=== PATIENT | male | born 1965 | race Caucasian/White ===

== ENCOUNTER 2018-12-07 08:23 | Emergency (ER) | payer MEDICAID, SELFPAY ==
[2018-12-07 08:24] VITALS: BP 117/88; PULSE 86; RESP 18; TEMP 36.7; O2SAT 96; BMI 32.8
--- NOTE | 2018-12-07 09:17 | RAD_ITS ---
STUDY: X-RAY - RIGHT FOOT CLINICAL: Male, 53 years old. History of osteomyelitis. TECHNIQUE: 3 view(s) of the foot. COMPARISON: None. FINDINGS: There is an enthesophyte involving the posterior superior calcaneus at the site of insertion of the Achilles tendon. Normal visualized subtalar, talonavicular, calcaneocuboid, tarsal and tarsometatarsal articulations. Normal metatarsi. Normal metatarsophalangeal joint of the great toe. Normal tibial and fibular sesamoid bones. Normal interphalangeal joint of the great toe. Normal phalanges of the great toe. Normal second through fifth metatarsophalangeal joints. Normal interphalangeal joints and phalanges of the lesser toes. 2 tiny linear metallic densities are seen in the soft tissues overlying the fibular aspect of the proximal phalanx of the great toe. This may represent foreign bodies. RAD/Foot min 3 Views IMPRESSION: Findings suggestive of 2 tiny linear metallic density suggestive of foreign bodies in the soft tissues along the fibular aspect of the proximal phalanx of the great toe. Electronically Signed: Jeanmarie De La Garza, at 9:56 EDT , Service support ,
[2018-12-07] MEDS: 0.9% Normal Saline 1,000 ML 1000 ML IV (09:22)
[2018-12-07 09:29] LABS: Absolute Lymphocyte Count 1.38 X10^3/uL (0.83-4.51); Absolute Neutrophil Count 8.5 X10^3/uL (2.0-7.7); Basophil# 0.03 X10^3/uL; Basophil% 0.3 % (0-1); Eosinophil# 0.18 X10^3/uL; Eosinophils% 1.7 % (0-5); Hematocrit 41.5 % (40-54); Hemoglobin 14.7 g/dL (13.0-16.5); Lymphocyte # 1.38 X10^3/ul (4.0); Lymphocyte % 12.8 % (19-41); Mean Corp Hgb Conc 35.4 g/dL (32-36); Mean Corpuscular Hgb 30.2 pg (27.0-32.0); Mean Corpuscular Volume 85.2 fL (80-94); Monocyte# 0.59 X10^3/uL; Monocyte% 5.5 % (0-10); NRBC Flagged by Analyzer 0 % (0-5); Neutrophil # 8.53 X10^3/uL (2.7-7.7); Platelet Count 336 K/mm3 (150-450); RBC Distribution Width CV 12.8 % (11.6-14.6); RBC Distribution Width SD 39.4 fl (35.1-43.9); Red Blood Count 4.87 M/mm3 (4.6-6.2); White Blood Count 10.8 K/mm3 (4.4-11.0)
[2018-12-07 09:44] LABS: ALB/GLOB Ratio 0.7 RATIO (0.9-2.4); AST(SGOT) 22 U/L (15-37); Alanine Aminotransfer ALT/SGPT 43 U/L (16-61); Alkaline Phosphatase 83 U/L (45-117); Anion Gap 8 (5-15); BUN 22 mg/dL (7-18); BUN/Creat Ratio 23.4 RATIO (10-20); Chloride 101 mmol/L (98-107); Creatinine, Serum 0.94 mg/dL (0.70-1.30); EST Glomerular Filtration Rate 89 mL/min (>60); Est Glom Filt Rate - Afr Amer 107 mL/min (>60); Estimated Creatinine Clearance 95.68 ml/min; Globulin 4.5 g/dL (2.2-4.2); Glucose 213 mg/dL (74-106); International Normalized Ratio 1.2; Potassium 3.7 mmol/L (3.5-5.1); Protein, Total 7.5 g/dL (6.4-8.2); Prothrombin Time (Protime)PT. 14.7 SECONDS (11.7-14.9); Sodium Level 134 mmol/L (136-145)
[2018-12-07 09:45] LABS: Partial Thromboplast Time 38.4 Seconds (24.1-36.2)
[2018-12-07 09:58] LABS: Color, Urine Yellow (Yellow); Glucose, Dipstick Normal (Normal); Ketone-Dipstick 5 mg/dl (Negative); Leukocyte Esterase-Dipstick 25 /ul (Negative); Nitrite-Dipstick Negative (Negative); Occult Blood-Urine 50 /ul (Negative); Protein-Dipstick 30 mg/dl (Negative); Urine Bilirubin Dipstick Negative (Negative); Urine Clarity Clear (Clear); Urine Urobilinogen Normal (Normal)
[2018-12-07 10:07] LABS: Bacteria RARE /hpf (None Seen); Red Blood Cells-Urine 5-10 SEEN /hpf (0-5); Squamous Epithelial Cells - UA 0-5 SEEN /hpf (0-5); White Blood Cells 0-5 SEEN /hpf (0-5)
[2018-12-07 10:08] LABS: Mucous, Urine 1+ /hpf (<or=2+)
[2018-12-07 10:43] VITALS: BP 159/89; PULSE 82; RESP 14; O2SAT 97
--- NOTE | 2018-12-07 11:14 | ED.VISSUMM ---
- ER Visit Summary Date of Service: 12/07/18 Chief Complaint: Rash History of Present Illness: The patient is a 53 M who goes to the [facility] and also sees Dr. Espinoza. He reports that he had redness between his right first and second toes that began 1 week ago[address] He saw Dr. summers in the office and was placed on Keflex. He is also been doing soaks and grafts 4 times a day. Reports he developed a blister to that foot 5 days ago. He denies any fever, chills, nausea, or vomiting. Patient reports that he has a rash that began on his legs bilaterally around his knees 2 days ago. States that they have now spread to his lower abdomen. He has pain only with touching these. He reports that he has hand swelling that began yesterday. He denies any sores in his mouth or around his anus. Patient denies any change in soap, shampoo, laundry detergent, or fabric softener. No new clothing, bedding, carpeting, or pets. No new other than Keflex in the past month. Physical Examination: Vitals: Stable. Afebrile. General: Well-nourished and well-developed. Head: Normocephalic atraumatic. Neck: Supple, no lymphadenopathy. No JVD. Nontender. Cardiovascular: Regular rate and rhythm. No murmurs. Respiratory: No respiratory distress. Clear to auscultation bilaterally. Abdominal: Soft, nontender, nondistended, normal bowel sounds. No guarding, rebound, or peritoneal signs. Back: Nontender. Extremities: He does have an approximately 6 x 8 cm hemorrhagic blister to the plantar surface of his right foot. This begins at the intersection of his first and second toes. At the end widens and spreads over to his arch. This is thin-walled. The fluid inside does appear slightly cloudy. There is no surrounding erythema or induration. He has a 2+ dorsalis pedis pulse. No edema. Skin: Purpuric 5 mm to 1 cm lesions scattered over his lower extremities and lower abdomen bilaterally. There is no confluence. They are mildly tender to palpation. There are no vesicular lesions. Neurologic: Alert and oriented ?3. Cranial nerves II through XII are intact. Normal strength and sensation. Psych: Normal affect. Test Results: CBC shows segmented neutrophils 79 lymphocytes 13. Chem-7 shows a sodium 134, glucose 213, BUN of 22. LFTs show an albumin 3.0 globulin 4.5. INR is 1.2. PTT is 38.4. UA shows blood, ketones, 5-10 red blood cells. Lactic acid is 2.0. Clinical Impression(s) from Imaging Studies Foot X-Ray 12/07/18 09:17 IMPRESSION: Findings suggestive of 2 tiny linear metallic density suggestive of foreign bodies in the soft tissues along the fibular aspect of the proximal phalanx of the great toe. Electronically Signed: Jeanmarie De La Garza, at 9:56 EDT , Service support , Emergency Department Course and Treatment: Patient had an IV placed. He was given a dose of vancomycin IV. He is resting comfortably. On repeat exam I am unable to palpate a foreign body. He has no areas of pain that would be suggestive of a sharp foreign body. I do not think that exploring this in the emergency department is in his best interest. I suspect that the large hemorrhagic blister with unroofed. Treatment Plan: The patient was discussed with Dr. Lyn who states that he has a very full schedule and is unsure when he would be able to see the patient. He was then discussed with Dr. Espinoza, his intake clinician, who asked that he be transferred to [facility]. He was discussed with Dr. Villa there. He has accepted him in transfer. Disposition: Transferred in improved condition. Impression: 1. Foreign body right great toe. 2. Hemorrhagic blister right foot. 3. Purpura. This note was generated with cacaoTVation software. It may contain incorrect words, spelling, and punctuation that were not noted in review of the chart prior to signing ED Disposition - Plan for ED Patient: Referrals: Etelvina Rain NP-C [Primary Care Provider] -
--- NOTE | 2018-12-07 11:57 | CASEMGMT ---
Case Managment Progress Note: According to patient insurance [employer], [facility]: [facility], [facility] , [facility], [facility], [facility], [facility], [facility]. Reyes Brooks RNCM
[2018-12-07 13:21] LABS: Reflex Lactate? Y
== END 2018-12-07 12:08 | disposition home or self-care (01) ==
LOC: ED 09:30
PROVIDERS: Emergency Provider Emergency Medicine; Family Provider Nurse Practitioner Family; PCP Nurse Practitioner Family
DX: S90.821A Blister (nonthermal), right foot, initial encounter (principal); M79.5 Residual foreign body in soft tissue; D69.2 Other nonthrombocytopenic purpura; M79.89 Other specified soft tissue disorders; X58.XXXA Exposure to other specified factors, initial encounter; Y93.9 Activity, unspecified; Y92.9 Unspecified place or not applicable; Y99.9 Unspecified external cause status; E11.9 Type 2 diabetes mellitus without complications; I10 Essential (primary) hypertension; Z79.82 Long term (current) use of aspirin; Z79.4 Long term (current) use of insulin; Z79.899 Other long term (current) drug therapy
CPT/HCPCS: 36415; 73630; 80053; 81001; 83605; 85025; 85610; 85730; 87040; 96361; 96365; 96366; 99285; J7030; J7040; A4216

== ENCOUNTER 2019-01-19 08:46 | Outpatient (RCR) | payer MEDICAID, SELFPAY ==
[2019-01-19 08:58] VITALS: BP 147/95; PULSE 72; RESP 18; TEMP 36.2; BMI 73.1
--- NOTE | 2019-01-19 11:17 | PCM.WC.HP ---
(1) Puncture wound of right foot Status: Acute Current Visit: Yes Code(s): S91.331A - Puncture wound without foreign body, right foot, initial encounter (2) Diabetes mellitus Status: Chronic Current Visit: No Qualifiers: Diabetes mellitus type: type 2 Diabetes mellitus intermediate accountant insulin use: with intermediate accountant use Diabetes mellitus complication status: with circulatory complication Code(s): E11.9 - Type 2 diabetes mellitus without complications (3) Obsessive compulsive disorder Status: Chronic Current Visit: No Code(s): F42.9 - Obsessive-compulsive disorder, unspecified (4) Superficial abrasion Status: Acute Current Visit: Yes Code(s): T14.8XXA - Other injury of unspecified body region, initial encounter History of Present Illness Date of Service: 01/19/19 Chief Complaint: Follow-up right plantar foot and left second toe plantar side History of Wound: 53-year-old white male diabetic that has been dealing with the blister on the left second toe for over a year it is now scabbed over and appears to be healed. The right ball of the foot has a scabbed hole that will be reopened and checked. Apparently he stepped on a nail or a pin and did not know it was and him had infection was treated in the end of November 1 part of December. He was then referred to the wound center. He does take insulin and orals and is well controlled at 7.1 on hemoglobin A1c Past Medical History Past Medical History: Chronic Problems Obsessive compulsive disorder (Chronic) Diabetes mellitus (Chronic) Hyperlipidemia (Chronic) Benign hypertension (Chronic) Past Medical History: Open wound right plantar foot, from stepping on a needle or nail or what ever. Has been seen by the other doctor get the needle out infection was there started on antibiotics over a month ago finish those and now is having a hard time closing it. Left second toe has been a blister that has closed and is now scabbed and when the scab is removed there is nothing there. Healed Allergies/Adverse Reactions: Allergies No Known Allergies Allergy (Verified 01/19/19 09:26) Home Medications: Ambulatory Orders Medication Instructions Recorded Aspirin [Aspirin, Baby] 81 mg PO DAILY@0800 01/02/13 Ezetimibe [Zetia] 10 mg PO DAILY 01/02/13 Fluoxetine [Prozac] 40 mg PO DAILY 01/02/13 Glimepiride [Amaryl] 4 mg PO DAILY 01/02/13 Verapamil HCl [Verelan] 180 mg PO DAILY 01/02/13 metFORMIN HCl [Glucophage] 500 mg PO BIDCM 01/02/13 Cholecalciferol (Vitamin D3) 1 tab PO DAILY 12/07/18 [Vitamin D3] Gemfibrozil 1 tab PO BID 12/07/18 Insulin Glargine,Hum.rec.anlog 20 unit SQ QHS 12/07/18 [Basaglar Kwikpen U-100] Liraglutide [Victoza 3-Jose] 1.8 mg SQ DAILY 12/07/18 Metoprolol Tartrate [Lopressor 100 mg PO BID 12/07/18 (Beta Augustine)] Pravastatin Sodium 80 mg PO DAILY 12/07/18 Smoking Status: Never smoker Review of Systems Constitutional: Denies: Chills, Fever Eyes: Denies: Blurred vision, Drainage, Pain HEENT: Denies: Difficulty Hearing, Difficulty Swallowing, Sore Throat, Visual Changes Cardiovascular: Denies: Chest Pain, Palpitations, Syncope Respiratory: Denies: Cough, Shortness of Breath Gastrointestinal: Denies: Abdominal Pain, Nausea, Vomiting Genitourinary: Denies: Dysuria, Frequency Musculoskeletal: Denies: Joint Pain, Muscle pain Skin: Denies: Jaundice, Rash Neurological: Denies: Balance problems, Change in Speech, Difficulty swallowing, Focal weakness Psychiatric: Denies: Anxiety, Depression Endocrine: Denies: Change in Body Habitus Hematologic/ Lymphatic: Denies: Adenopathy - Physical Exam Vital Signs Temp Pulse Resp BP 97.1 F L 72 18 147/95 H 01/19/19 08:58 01/19/19 08:58 01/19/19 08:58 01/19/19 08:58 General: Oriented x3, Cooperative, Well developed HEENT: Atraumatic, PERRLA Oral: Moist Mucosa Neck: Supple, No JVD Lungs: Clear to auscultation, Normal air movement Cardiovascular: Regular rate, Regular Rhythm Abdomen: Bowel Sounds Present, Soft, Non Tender, No Hepato-splenomegaly Extremities: No clubbing, No edema Skin: Ulcer/ Wound - Right plantar foot left second toe plantar side Wound Measurements and Assessment WC - Nurse 1 - General Ulcer Measurement Start: 01/19/19 08:58 Freq: Status: Active Protocol: Activity Type Activity Date Activity User E-Sign Co-Sign Detail Recorded Client Recorded Date Recorded By Document 01/19/19 08:58 DL [id number] 01/19/19 09:19 DL 01/19/19 08:58 Wound Center Nurse 1 [Ulcer Assessment] #4 L 2nd Toe Plantar -Current Size (cm) - Length 0.2 -Current Size (cm) - Width 0.2 -Current Size (cm) - Depth 0.1 -Total Square Cm 0.04 -Photo Taken Yes -Exudate Amt None Present -Wound Margin Thickened -Granulation Amt None Present (0 %) -Necrosis Amt Small (1-33%) -Necrotic Tissue Type Adherent Slough -Structure Exposed N/A -Texture (Umu-wound Skin Appearance) Callus -Moisture (Umu-wound Skin Appearance No Abnormality ) -Color (Umu-wound Skin Appearance) No Abnormality -Temperature (Umu-wound Skin No Abnormality Appearance) (Pt Warm) -Tenderness on Palpation (Umu-wound Yes Skin Appearance) -Ulcer Cleansing Wound Cleanser -Foul Odor after Cleansing No -Anesthetic Used 4% Lidocaine Solution #3 R Plantar -Current Size (cm) - Length 0.5 -Current Size (cm) - Width 0.3 -Current Size (cm) - Depth 0.1 -Total Square Cm 0.15 -Photo Taken Yes -Classification - Thickness Unclassifiable (Eschar Covered ) -Exudate Amt None Present -Wound Margin Thickened -Granulation Amt None Present (0 %) -Necrosis Amt Small (1-33%) -Necrotic Tissue Type Eschar -Structure Exposed N/A -Texture (Umu-wound Skin Appearance) Callus -Moisture (Umu-wound Skin Appearance No Abnormality ) -Color (Umu-wound Skin Appearance) No Abnormality -Temperature (Umu-wound Skin No Abnormality Appearance) (Pt Warm) -Tenderness on Palpation (Umu-wound Yes Skin Appearance) -Ulcer Cleansing Wound Cleanser -Foul Odor after Cleansing No -Anesthetic Used 4% Lidocaine Solution WC - Nurse 2 - General Ulcer CM Notes Start: 01/19/19 08:58 Freq: Status: Active Protocol: Activity Type Activity Date Activity User E-Sign Co-Sign Detail Recorded Client Recorded Date Recorded By Document 01/19/19 09:51 MW [id number] 01/19/19 10:02 MW 01/19/19 09:51 Wound Center Nurse 2 [Procedure/Treatment] #4 L 2nd Toe Plantar -Time 09:53 -Correct Patient Yes -Correct Side, Site, Position Yes -Correct Procedure Yes -Post Debridement Size (cm) - Length 0 -Post Debridement Size (cm) - Width 0 -Post Debridement Size (cm) - Depth 0 -Total Square Cm 0 -Wound/Ulcer Outcome Healed- Epithelialized -Ulcer Cleansing Not Cleansed -Treatment Response Procedure Tolerated Well #3 R Plantar -Time 09:53 -Correct Patient Yes -Correct Side, Site, Position Yes -Correct Procedure Yes -Procedure Performed Yes -Type of Procedure Debridement -Clinical Debridement Subcutaneous -Post Debridement Size (cm) - Length 0.4 -Post Debridement Size (cm) - Width 0.4 -Post Debridement Size (cm) - Depth 0.3 -Total Square Cm 0.16 -Wound/Ulcer Outcome Not Healed -Ulcer Cleansing Rinsed/ Irrigated with Saline -Foul Odor after Cleansing No -Bioengineered Tissue No -Bleeding Controlled with NA -Offloading No -Treatment Response Procedure Tolerated Well [See Physician Procedure note for Specifics] Pain Scale: 0-10 Numeric [Pain] -Is Patient Pain Free? Yes Musculoskeletal: No Tenderness to Palpation of Joints or Extremities Lymphatic: No Cervical, Supraclavicular, or Inguinal Adenopathy Neurological: Cranial nerves II-XII grossly intact, Neuro grossly intact Psych/Mental Status: Normal Affect, Appropriate Debridement Note Post-Debridement Measurements/Treatment WC - Nurse 2 - General Ulcer CM Notes Start: 01/19/19 08:58 Freq: Status: Active Protocol: Activity Type Activity Date Activity User E-Sign Co-Sign Detail Recorded Client Recorded Date Recorded By Document 01/19/19 09:51 MW [id number] 01/19/19 10:02 MW 01/19/19 09:51 Wound Center Nurse 2 #4 L 2nd Toe Plantar -Time 09:53 -Correct Patient Yes -Correct Side, Site, Position Yes -Correct Procedure Yes -Post Debridement Size (cm) - Length 0 -Post Debridement Size (cm) - Width 0 -Post Debridement Size (cm) - Depth 0 -Total Square Cm 0 -Wound/Ulcer Outcome Healed- Epithelialized -Ulcer Cleansing Not Cleansed -Treatment Response Procedure Tolerated Well #3 R Plantar -Time 09:53 -Correct Patient Yes -Correct Side, Site, Position Yes -Correct Procedure Yes -Procedure Performed Yes -Type of Procedure Debridement -Clinical Debridement Subcutaneous -Post Debridement Size (cm) - Length 0.4 -Post Debridement Size (cm) - Width 0.4 -Post Debridement Size (cm) - Depth 0.3 -Total Square Cm 0.16 -Wound/Ulcer Outcome Not Healed -Ulcer Cleansing Rinsed/ Irrigated with Saline -Foul Odor after Cleansing No -Bioengineered Tissue No -Bleeding Controlled with NA -Offloading No -Treatment Response Procedure Tolerated Well Pain Scale: 0-10 Numeric Is Patient Pain Free? Yes Wound debrided: Right foot plantar side Type of Debridement: Excisional debridement Anesthesia Used: 5% Lidocaine Gel Depth: Down to and including healthy tissue, in the subcutaneous layer Percentage of wound debrided: 100 Instrument Used: 7mm curette Tissue Removed: Devitalized tissue and fibrin Severity: Limited To Skin Breakdown Amount of bleeding with debridement: Mild Bleeding Controlled with: Pressure Patient tolerated procedure well - Additional Wound Wound debrided: Left second toe plantar side Type of Debridement: Excisional debridement Anesthesia Used: 5% Lidocaine Gel Depth: Down to and including healthy tissue Percentage of wound debrided: 100 Instrument Used: 7mm curette Tissue Removed: Callus scab Severity: Limited To Skin Breakdown Amount of bleeding with debridement: None Patient tolerated procedure: Patient tolerated procedure well Assessment/Plan Anaerobic and aerobic cultures obtained Active Problems Puncture wound of right foot (Acute) Superficial abrasion (Acute) Assessment: Right foot puncture wound to right plantar foot. Healed right second toe abrasion. Diabetes type 1.5 Plan: Wash foot with Hibiclens or antibacterial soap. Pack puncture with Promogran cover with Adaptic gauze and tape. Follow-up in 2 weeks. Call with culture results
== END 2019-02-01 23:59 ==
LOC: WC 08:46
PROVIDERS: Family Provider Nurse Practitioner Family; PCP Nurse Practitioner Family; Referring Provider Nurse Practitioner; Visit Provider Nurse Practitioner
DX: S91.331A Puncture wound without foreign body, right foot, initial encounter (principal); S90.425A Blister (nonthermal), left lesser toe(s), initial encounter; F42.9 Obsessive-compulsive disorder, unspecified; W22.8XXA Striking against or struck by other objects, initial encounter; Z79.4 Long term (current) use of insulin; E78.5 Hyperlipidemia, unspecified; I10 Essential (primary) hypertension; Z79.899 Other long term (current) drug therapy; Z79.82 Long term (current) use of aspirin; E13.9 Other specified diabetes mellitus without complications
CPT/HCPCS: 11042; 87070; 87075; 87205; 99213; G0463

== ENCOUNTER 2019-02-02 08:12 | Outpatient (RCR) | payer MEDICAID, SELFPAY ==
[2019-02-02 01:31] VITALS: BP 147/95; PULSE 72; RESP 18; TEMP 36.2
[2019-02-02 08:09] VITALS: BP 144/94; PULSE 69; RESP 19; TEMP 35.9; BMI 73.1
--- NOTE | 2019-02-02 10:44 | PCM.WC.PN ---
(1) Puncture wound of right foot Status: Acute Current Visit: Yes Qualifiers: Encounter type: subsequent encounter Qualified Code(s): S91.331D - Puncture wound without foreign body, right foot, subsequent encounter Code(s): S91.331A - Puncture wound without foreign body, right foot, initial encounter (2) Superficial abrasion Status: Acute Current Visit: Yes Code(s): T14.8XXA - Other injury of unspecified body region, initial encounter (3) Benign hypertension Status: Chronic Current Visit: Yes Code(s): I10 - Essential (primary) hypertension (4) Diabetes mellitus Status: Chronic Current Visit: Yes Code(s): E11.9 - Type 2 diabetes mellitus without complications (5) Obsessive compulsive disorder Status: Chronic Current Visit: No Code(s): F42.9 - Obsessive-compulsive disorder, unspecified Type of Wound Date of Service: 02/02/19 Chief Complaint: Follow-up right plantar foot and left second toe plantar side History of Wound: 53-year-old white male diabetic that has been dealing with the blister on the left second toe for over a year it is now scabbed over and appears to be healed. The right ball of the foot has a scabbed hole that will be reopened and checked. Apparently he stepped on a nail or a pin and did not know it was and him had infection was treated in the end of November 1 part of December. He was then referred to the wound center. He does take insulin and orals and is well controlled at 7.1 on hemoglobin A1c Progress of Wound: Today the wound is healed patient will be discharged from the wound center - Physical Exam Vital Signs Temp Pulse Resp BP 96.6 F L 69 19 H 144/94 H 02/02/19 08:09 02/02/19 08:09 02/02/19 08:09 02/02/19 08:09 General: Oriented x3, Cooperative, Well developed HEENT: Atraumatic, PERRLA Oral: Moist Mucosa Neck: Supple, No JVD Lungs: Clear to auscultation, Normal air movement Cardiovascular: Regular rate, Regular Rhythm Abdomen: Bowel Sounds Present, Soft, Non Tender, No Hepato-splenomegaly Extremities: No clubbing, No edema Wound Measurements and Assessment WC - Nurse 1 - General Ulcer Measurement Start: 02/02/19 08:09 Freq: Status: Active Protocol: Activity Type Activity Date Activity User E-Sign Co-Sign Detail Recorded Client Recorded Date Recorded By Document 02/02/19 08:09 DL [id number] 02/02/19 08:16 DL 02/02/19 08:09 Wound Center Nurse 1 [Ulcer Assessment] #3 R Plantar -Current Size (cm) - Length 0.2 -Current Size (cm) - Width 0.2 -Current Size (cm) - Depth 0.1 -Total Square Cm 0.04 -Photo Taken No -Exudate Amt None Present -Wound Margin Thickened -Granulation Amt None Present (0 %) -Necrosis Amt Small (1-33%) -Necrotic Tissue Type Eschar -Structure Exposed N/A -Texture (Umu-wound Skin Appearance) Callus -Moisture (Umu-wound Skin Appearance No Abnormality ) -Color (Umu-wound Skin Appearance) No Abnormality -Temperature (Umu-wound Skin No Abnormality Appearance) (Pt Warm) -Tenderness on Palpation (Umu-wound No Skin Appearance) -Ulcer Cleansing Wound Cleanser -Foul Odor after Cleansing No -Anesthetic Used 5% Lidocaine Gel WC - Nurse 2 - General Ulcer CM Notes Start: 02/02/19 08:09 Freq: Status: Active Protocol: Activity Type Activity Date Activity User E-Sign Co-Sign Detail Recorded Client Recorded Date Recorded By Document 02/02/19 08:29 MW [id number] 02/02/19 08:30 MW 02/02/19 08:29 Wound Center Nurse 2 [Procedure/Treatment] -Time 08:29 -Correct Patient Yes -Correct Side, Site, Position Yes -Correct Procedure Yes -Procedure Performed No -Post Debridement Size (cm) - Length 0 -Post Debridement Size (cm) - Width 0 -Post Debridement Size (cm) - Depth 0 -Total Square Cm 0 -Wound/Ulcer Outcome Healed- Epithelialized [See Physician Procedure note for Specifics] Pain Scale: 0-10 Numeric [Pain] -Is Patient Pain Free? Yes Musculoskeletal: No Tenderness to Palpation of Joints or Extremities Lymphatic: No Cervical, Supraclavicular, or Inguinal Adenopathy Neurological: Cranial nerves II-XII grossly intact, Neuro grossly intact Psych/Mental Status: Normal Affect, Appropriate Debridement Note Post-Debridement Measurements/Treatment WC - Nurse 2 - General Ulcer CM Notes Start: 02/02/19 08:09 Freq: Status: Active Protocol: Activity Type Activity Date Activity User E-Sign Co-Sign Detail Recorded Client Recorded Date Recorded By Document 02/02/19 08:29 MW [id number] 02/02/19 08:30 MW 02/02/19 08:29 Wound Center Nurse 2 #3 R Plantar -Time 08:29 -Correct Patient Yes -Correct Side, Site, Position Yes -Correct Procedure Yes -Procedure Performed No -Post Debridement Size (cm) - Length 0 -Post Debridement Size (cm) - Width 0 -Post Debridement Size (cm) - Depth 0 -Total Square Cm 0 -Wound/Ulcer Outcome Healed- Epithelialized Pain Scale: 0-10 Numeric Is Patient Pain Free? Yes No debridement was completed today Assessment/Plan Active Problems Puncture wound of right foot (Acute) Superficial abrasion (Acute) Diabetes mellitus (Chronic) Benign hypertension (Chronic) Assessment: Discharge from the wound center follow-up as needed Plan: Wash foot with Hibiclens or antibacterial soap. Pack puncture with Promogran cover with Adaptic gauze and tape. Follow-up in 2 weeks. Call with culture results
== END 2019-03-03 23:59 ==
LOC: WC 08:12
PROVIDERS: Family Provider Nurse Practitioner Family; PCP Nurse Practitioner Family; Referring Provider Nurse Practitioner; Visit Provider Nurse Practitioner
DX: Z09 Encounter for follow-up examination after completed treatment for conditions other than malignant neoplasm (principal); I10 Essential (primary) hypertension; E11.9 Type 2 diabetes mellitus without complications; F42.9 Obsessive-compulsive disorder, unspecified
CPT/HCPCS: 99212; G0463

== ENCOUNTER → 2019-12-11 08:15 | Outpatient (CLI) | payer MEDICAID, SELFPAY ==
[2019-12-11 08:38] LABS: Absolute Lymphocyte Count 1.34 X10^3/uL (0.83-4.51); Absolute Neutrophil Count 5.2 X10^3/uL (2.0-7.7); Basophil# 0.05 X10^3/uL; Basophil% 0.7 % (0-1); Hematocrit 40.9 % (40-54); Hemoglobin 14.1 g/dL (13.0-16.5); Lymphocyte # 1.34 X10^3/ul (4.0); Mean Corp Hgb Conc 34.5 g/dL (32-36); Mean Corpuscular Hgb 30.2 pg (27.0-32.0); Mean Corpuscular Volume 87.6 fL (80-94); Mean Platelet Vol. 11.2 fl (6.2-12.0); Monocyte# 0.58 X10^3/uL; Monocyte% 7.8 % (0-10); NRBC Flagged by Analyzer 0 % (0-5); Neutrophil # 5.16 X10^3/uL (2.7-7.7); Neutrophil % 69.1 % (47-70); Platelet Count 209 K/mm3 (150-450); RBC Distribution Width CV 13.4 % (11.6-14.6); RBC Distribution Width SD 42.6 fl (35.1-43.9); Red Blood Count 4.67 M/mm3 (4.6-6.2); White Blood Count 7.5 K/mm3 (4.4-11.0)
[2019-12-11 09:14] LABS: AST(SGOT) 15 U/L (15-37); Alanine Aminotransfer ALT/SGPT 22 U/L (16-61); Alkaline Phosphatase 92 U/L (45-117); Anion Gap 5 (5-15); BUN 16 mg/dL (7-18); BUN/Creat Ratio 16.3 RATIO (10-20); Calcium,Total 9.3 mg/dL (8.5-10.1); Chloride 104 mmol/L (98-107); Cholesterol 118 mg/dL (200); Creatinine, Serum 0.98 mg/dL (0.70-1.30); EST Glomerular Filtration Rate 84 mL/min (>60); Est Glom Filt Rate - Afr Amer 102 mL/min (>60); Globulin 3.9 g/dL (2.2-4.2); Glucose 255 mg/dL (74-106); High Density Lipoprotein 28 mg/dL; Potassium 4.2 mmol/L (3.5-5.1); Protein, Total 7.9 g/dL (6.4-8.2); Sodium Level 138 mmol/L (136-145); Triglycerides 275 mg/dL; Very Low Density Lipoprotein 55 mg/dL (5-40)
[2019-12-11 09:15] LABS: Hemoglobin A1c 7.6 % (3.8-5.6)
[2019-12-11 09:51] LABS: Vitamin D,25 Hydroxy 50.6 ng/mL
== END ==
PROVIDERS: Nurse Practitioner Family
DX: E11.65 Type 2 diabetes mellitus with hyperglycemia (principal); I10 Essential (primary) hypertension; E55.9 Vitamin D deficiency, unspecified; E78.2 Mixed hyperlipidemia
CPT/HCPCS: 36415; 80053; 80061; 82306; 83036; 85025

== ENCOUNTER → 2020-04-07 10:24 | Outpatient (CLI) | payer MEDICAID, SELFPAY ==
[2020-04-07 11:12] LABS: Hemoglobin A1c 7.4 % (3.8-5.6)
[2020-04-07 11:30] LABS: ALB/GLOB Ratio 1.1 RATIO (0.9-2.4); AST(SGOT) 11 U/L (15-37); Alanine Aminotransfer ALT/SGPT 21 U/L (16-61); Alkaline Phosphatase 81 U/L (45-117); Anion Gap 4 (5-15); BUN 22 mg/dL (7-18); BUN/Creat Ratio 21.8 RATIO (10-20); Calcium,Total 9.4 mg/dL (8.5-10.1); Chloride 105 mmol/L (98-107); Cholesterol 144 mg/dL (200); Creatinine, Serum 1.01 mg/dL (0.70-1.30); EST Glomerular Filtration Rate 81 mL/min (>60); Est Glom Filt Rate - Afr Amer 98 mL/min (>60); Globulin 3.8 g/dL (2.2-4.2); Glucose 139 mg/dL (74-106); High Density Lipoprotein 32 mg/dL; Protein, Total 7.8 g/dL (6.4-8.2); Sodium Level 137 mmol/L (136-145); Triglycerides 212 mg/dL; Very Low Density Lipoprotein 42 mg/dL (5-40)
== END ==
PROVIDERS: Referring Provider Family Medicine; Visit Provider Family Medicine
DX: E11.65 Type 2 diabetes mellitus with hyperglycemia (principal); E78.2 Mixed hyperlipidemia
CPT/HCPCS: 36415; 80053; 80061; 83036

== ENCOUNTER → 2020-12-22 09:15 | Outpatient (CLI) | payer MEDICAID, SELFPAY ==
[2020-12-22 10:26] LABS: Absolute Lymphocyte Count 1.23 X10^3/uL (0.83-4.51); Absolute Neutrophil Count 4.1 X10^3/uL (2.0-7.7); Basophil# 0.06 X10^3/uL; Eosinophil# 0.24 X10^3/uL; Eosinophils% 3.9 % (0-5); Hematocrit 39.6 % (40-54); Hemoglobin 13.5 g/dL (13.0-16.5); Lymphocyte # 1.23 X10^3/ul (0.83-4.51); Lymphocyte % 20.1 % (19-41); Mean Corp Hgb Conc 34.1 g/dL (32-36); Mean Corpuscular Hgb 30.5 pg (27.0-32.0); Mean Corpuscular Volume 89.4 fL (80-94); Monocyte% 8.2 % (0-10); NRBC Flagged by Analyzer 0 % (0-5); Neutrophil # 4.06 X10^3/uL (2.7-7.7); Neutrophil % 66.3 % (47-70); Platelet Count 179 K/mm3 (150-450); RBC Distribution Width CV 13.8 % (11.6-14.6); RBC Distribution Width SD 44.8 fl (35.1-43.9); Red Blood Count 4.43 M/mm3 (4.6-6.2); White Blood Count 6.1 K/mm3 (4.4-11.0)
[2020-12-22 11:11] LABS: ALB/GLOB Ratio 0.9 RATIO (0.9-2.4); AST(SGOT) 14 U/L (15-37); Alanine Aminotransfer ALT/SGPT 20 U/L (16-61); Albumin, Serum 3.5 g/dL (3.2-5.0); Alkaline Phosphatase 72 U/L (45-117); Anion Gap 6 (5-15); BUN 18 mg/dL (7-18); BUN/Creat Ratio 17.3 RATIO (10-20); Calcium,Total 8.7 mg/dL (8.5-10.1); Chloride 106 mmol/L (98-107); Cholesterol 113 mg/dL (200); Creatinine, Serum 1.04 mg/dL (0.70-1.30); EST Glomerular Filtration Rate 78 mL/min (>60); Est Glom Filt Rate - Afr Amer 95 mL/min (>60); Globulin 3.8 g/dL (2.2-4.2); Glucose 261 mg/dL (74-106); High Density Lipoprotein 28 mg/dL; PSA,Total - Annual Screen 0.92 ng/mL (0.00-4.00); Potassium 3.9 mmol/L (3.5-5.1); Protein, Total 7.3 g/dL (6.4-8.2); Sodium Level 136 mmol/L (136-145); Thyroid Stim Hormone (TSH) 2.67 uIU/mL (0.358-3.74); Triglycerides 207 mg/dL; Very Low Density Lipoprotein 41 mg/dL (5-40)
== END ==
DX: Z12.5 Encounter for screening for malignant neoplasm of prostate (principal); Z12.11 Encounter for screening for malignant neoplasm of colon; E11.65 Type 2 diabetes mellitus with hyperglycemia
CPT/HCPCS: 36415; 80053; 80061; 84153; 84443; 85025; G0103

== ENCOUNTER → 2021-03-23 10:07 | Outpatient (CLI) | payer MEDICAID, SELFPAY ==
[2021-03-23 11:00] LABS: Absolute Lymphocyte Count 1.08 X10^3/uL (0.83-4.51); Absolute Neutrophil Count 4.1 X10^3/uL (2.0-7.7); Basophil# 0.05 X10^3/uL; Basophil% 0.8 % (0-1); Eosinophil# 0.22 X10^3/uL; Eosinophils% 3.7 % (0-5); Hematocrit 38.4 % (40-54); Hemoglobin 13.2 g/dL (13.0-16.5); Lymphocyte # 1.08 X10^3/ul (0.83-4.51); Lymphocyte % 18.2 % (19-41); Mean Corp Hgb Conc 34.4 g/dL (32-36); Mean Corpuscular Hgb 29.7 pg (27.0-32.0); Mean Corpuscular Volume 86.5 fL (80-94); Mean Platelet Vol. 11.6 fl (6.2-12.0); Monocyte# 0.42 X10^3/uL; Monocyte% 7.1 % (0-10); NRBC Flagged by Analyzer 0 % (0-5); Neutrophil # 4.13 X10^3/uL (2.7-7.7); Neutrophil % 69.4 % (47-70); Platelet Count 218 K/mm3 (150-450); RBC Distribution Width CV 13.2 % (11.6-14.6); Red Blood Count 4.44 M/mm3 (4.6-6.2)
[2021-03-23 11:21] LABS: Microalbumin,Random Urine 54.8 mg/L (NO RANGE EST.); Microalbumin:Creatinine Ratio 44.2 mg/g CRE (<30 mg/g CRE)
[2021-03-23 11:28] LABS: Vitamin B12 411 pg/mL (211-911)
[2021-03-23 11:39] LABS: Iron 76 ug/dL (65-175); Iron Binding Capacity,Total 398 ug/dL (250-450); PERCENT IRON SATURATION 19.1 % (15.0-55.0)
== END ==
PROVIDERS: Visit Provider Nurse Practitioner Adult Health
DX: D64.9 Anemia, unspecified (principal); E11.65 Type 2 diabetes mellitus with hyperglycemia
CPT/HCPCS: 36415; 82043; 82570; 82607; 82746; 83540; 83550; 85025

== ENCOUNTER → 2021-11-25 | Outpatient (CLI) | payer MEDICAID, SELFPAY ==
[2021-11-25 08:50] LABS: Absolute Lymphocyte Count 1.02 X10^3/uL (0.83-4.51); Absolute Neutrophil Count 4.2 X10^3/uL (2.0-7.7); Basophil# 0.06 X10^3/uL; Eosinophil# 0.24 X10^3/uL; Hematocrit 36.7 % (40-54); Hemoglobin 13.3 g/dL (13.0-16.5); Lymphocyte # 1.02 X10^3/ul (0.83-4.51); Lymphocyte % 17.1 % (19-41); Mean Corp Hgb Conc 36.2 g/dL (32-36); Mean Corpuscular Hgb 31.4 pg (27.0-32.0); Mean Corpuscular Volume 86.8 fL (80-94); Monocyte# 0.45 X10^3/uL; Monocyte% 7.6 % (0-10); NRBC Flagged by Analyzer 0 % (0-5); Neutrophil # 4.17 X10^3/uL (2.7-7.7); Platelet Count 237 K/mm3 (150-450); RBC Distribution Width CV 13.8 % (11.6-14.6); RBC Distribution Width SD 43.5 fl (35.1-43.9); Red Blood Count 4.23 M/mm3 (4.6-6.2)
[2021-11-25 09:25] LABS: ALB/GLOB Ratio 0.9 RATIO (0.9-2.4); AST(SGOT) 14 U/L (15-37); Alanine Aminotransfer ALT/SGPT 21 U/L (16-61); Albumin, Serum 3.6 g/dL (3.2-5.0); Alkaline Phosphatase 93 U/L (45-117); Anion Gap 8 (5-15); BUN 31 mg/dL (7-18); Calcium,Total 8.9 mg/dL (8.5-10.1); Chloride 101 mmol/L (98-107); Cholesterol 117 mg/dL (200); Creatinine, Serum 1.35 mg/dL (0.70-1.30); EST Glomerular Filtration Rate 58 mL/min (>60); Est Glom Filt Rate - Afr Amer 70 mL/min (>60); Globulin 3.9 g/dL (2.2-4.2); Glucose 403 mg/dL (74-106); High Density Lipoprotein 29 mg/dL; Potassium 4.1 mmol/L (3.5-5.1); Protein, Total 7.5 g/dL (6.4-8.2); Sodium Level 134 mmol/L (136-145); Triglycerides 383 mg/dL; Very Low Density Lipoprotein 77 mg/dL (5-40)
[2021-11-25 09:57] LABS: Hemoglobin A1c 8.6 % (3.8-5.6)
== END | disposition home or self-care (01) ==
LOC: LAB 08:28
DX: D64.9 Anemia, unspecified (principal); E11.65 Type 2 diabetes mellitus with hyperglycemia; E55.9 Vitamin D deficiency, unspecified; E78.2 Mixed hyperlipidemia
CPT/HCPCS: 36415; 80053; 80061; 82306; 83036; 85025

== ENCOUNTER 2022-08-26 12:47 | Emergency (ER) | payer MEDICAID, SELFPAY ==
[2022-08-26 12:47] VITALS: BP 159/94; PULSE 78; RESP 18; TEMP 36; O2SAT 100
[2022-08-26 13:04] VITALS: BMI 33.4
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
--- NOTE | 2022-08-26 13:27 | RAD_ITS ---
HISTORY: Injury/Pain. TECHNIQUE: XR Clavicle Unilateral. COMPARISON: None. FINDINGS: BONES : No acute fracture identified. Mineralization unremarkable. 2 mm ossification at the greater tuberosity. JOINTS: No dislocation. Joint spaces maintained. SOFT TISSUES: Left lung apex unremarkable. RAD/Clavicle IMPRESSION: No acute fracture or dislocation identified in the left clavicle. Mild calcific tendinitis of the shoulder. Electronically Signed: Darling Claire MD at 14:04 EDT ,
--- NOTE | 2022-08-26 13:27 | RAD_ITS ---
HISTORY: Trauma. TECHNIQUE: XR Ribs Unilateral W/ PA Chest Min 3 Views. COMPARISON: None. FINDINGS: CARDIOMEDIASTINAL BORDERS: Cardiac silhouette within normal limits in size. Mediastinal contour unremarkable with calcification of the aortic knob. LUNGS: Radiographically clear. PLEURA: No pleural effusion or pneumothorax seen. OSSEOUS STRUCTURES: No acute displaced rib fracture identified. RAD/Ribs Uni Min 3V w/PA Chest IMPRESSION: No acute abnormality identified. Electronically Signed: Darling Claire MD at 14:06 EDT ,
--- NOTE | 2022-08-26 13:37 | RAD_ITS ---
HISTORY: Injury/Pain. TECHNIQUE: XR Spine Cervical 2 or 3 Views. COMPARISON: None. FINDINGS: VERTEBRAE: Vertebral body heights maintained. No acute fracture identified. ALIGNMENT: No significant anterior or posterior subluxation. Straightening of the cervical lordosis. INTERVERTEBRAL DISCS: Very mild degenerative endplate change and intervertebral disc space narrowing of C5-6. Mild degenerative endplate change with intervertebral disc space narrowing of C6/7. SOFT TISSUES: No significant prevertebral soft tissue swelling. RAD/Cerv Spine 2 or 3 Views IMPRESSION: No acute fracture or dislocation identified in the cervical spine. Mild degenerative change. Electronically Signed: Darling Claire MD at 14:03 EDT ,
[2022-08-26] MEDS: Diphth,Pertuss(Acell),Tet Vac 0.5 ML Vial IM (13:58)
[2022-08-26] MEDS: Lidocaine 1% (20 ml mdv) 20 ML Vial INFILT (13:59)
== END 2022-08-26 16:31 | disposition home or self-care (01) ==
PROVIDERS: Emergency Provider Emergency Medicine; Visit Provider Emergency Medicine
DX: S01.312A Laceration without foreign body of left ear, initial encounter (principal); S40.012A Contusion of left shoulder, initial encounter; V49.40XA Driver injured in collision with unspecified motor vehicles in traffic accident, initial encounter
CPT/HCPCS: 12011; 71101; 72040; 73000; 90715; 99284

== ENCOUNTER → 2023-08-02 | Outpatient (CLI) | payer MEDICAID, SELFPAY ==
[2023-08-02 10:00] LABS: Absolute Neutrophil Count 3.8 X10^3/uL (2.0-7.7); Basophil# 0.04 X10^3/uL; Basophil% 0.7 % (0-1); Eosinophil# 0.32 X10^3/uL; Eosinophils% 5.7 % (0-5); Hematocrit 37.9 % (40-54); Hemoglobin 13.1 g/dL (13.0-16.5); Mean Corp Hgb Conc 34.6 g/dL (32-36); Mean Corpuscular Hgb 29.6 pg (27.0-32.0); Mean Corpuscular Volume 85.6 fL (80-94); Mean Platelet Vol. 11.2 fl (6.2-12.0); Monocyte% 8.9 % (0-10); NRBC Flagged by Analyzer 0 % (0-5); Neutrophil # 3.84 X10^3/uL (2.7-7.7); Neutrophil % 68.3 % (47-70); Platelet Count 181 K/mm3 (150-450); RBC Distribution Width CV 14.3 % (11.6-14.6); RBC Distribution Width SD 44.7 fl (35.1-43.9); Red Blood Count 4.43 M/mm3 (4.6-6.2); White Blood Count 5.6 K/mm3 (4.4-11.0)
[2023-08-02 10:38] LABS: AST(SGOT) 20 U/L (15-37); Alanine Aminotransfer ALT/SGPT 19 U/L (16-61); Albumin, Serum 3.7 g/dL (3.2-5.0); Alkaline Phosphatase 108 U/L (45-117); Anion Gap 6 (5-15); BUN 25 mg/dL (7-18); Calcium,Total 9.2 mg/dL (8.5-10.1); Chloride 102 mmol/L (98-107); Cholesterol 135 mg/dL (200); Creatinine, Serum 1.39 mg/dL (0.70-1.30); EST Glomerular Filtration Rate 56 mL/min (>60); Est Glom Filt Rate - Afr Amer 67 mL/min (>60); Globulin 3.8 g/dL (2.2-4.2); Glucose 350 mg/dL (74-106); High Density Lipoprotein 29 mg/dL; PSA,Total - Annual Screen 1.82 ng/mL (0.00-4.00); Potassium 4.3 mmol/L (3.5-5.1); Protein, Total 7.5 g/dL (6.4-8.2); Sodium Level 133 mmol/L (136-145); Triglycerides 371 mg/dL; Very Low Density Lipoprotein 74 mg/dL (5-40)
== END | disposition home or self-care (01) ==
LOC: LAB 09:23
PROVIDERS: PCP Nurse Practitioner Family; Referring Provider Nurse Practitioner Family; Visit Provider Nurse Practitioner Family
DX: E11.65 Type 2 diabetes mellitus with hyperglycemia (principal); E78.2 Mixed hyperlipidemia; Z12.5 Encounter for screening for malignant neoplasm of prostate
CPT/HCPCS: 84153; 36415; 80053; 80061; 82043; 85025; G0103

== ENCOUNTER → 2023-11-29 | Outpatient (CLI) | payer MEDICAID, SELFPAY ==
[2023-11-29 17:19] LABS: Absolute Lymphocyte Count 1.18 X10^3/uL (0.83-4.51); Absolute Neutrophil Count 5.1 X10^3/uL (2.0-7.7); Basophil# 0.05 X10^3/uL; Basophil% 0.7 % (0-1); Eosinophil# 0.22 X10^3/uL; Eosinophils% 3.1 % (0-5); Hematocrit 41.7 % (40-54); Hemoglobin 14.1 g/dL (13.0-16.5); Lymphocyte # 1.18 X10^3/ul (0.83-4.51); Lymphocyte % 16.6 % (19-41); Mean Corp Hgb Conc 33.8 g/dL (32-36); Mean Corpuscular Hgb 28.8 pg (27.0-32.0); Mean Corpuscular Volume 85.1 fL (80-94); Mean Platelet Vol. 12.4 fl (6.2-12.0); Monocyte# 0.57 X10^3/uL; NRBC Flagged by Analyzer 0 % (0-5); Neutrophil # 5.06 X10^3/uL (2.7-7.7); Neutrophil % 71.2 % (47-70); POSITIVE COUNT YES; Platelet Count 131 K/mm3 (150-450); RBC Distribution Width CV 13.6 % (11.6-14.6); RBC Distribution Width SD 42.3 fl (35.1-43.9); White Blood Count 7.1 K/mm3 (4.4-11.0)
[2023-11-29 17:29] LABS: Differential Indicated SCAN CRITERIA MET
[2023-11-29 17:50] LABS: Microalbumin,Random Urine 40.9 mg/L (NO RANGE EST.)
[2023-11-29 17:59] LABS: Differential Comment SCANNED
[2023-11-29 18:00] LABS: AST(SGOT) 17 U/L (15-37); Alanine Aminotransfer ALT/SGPT 18 U/L (16-61); Albumin, Serum 3.9 g/dL (3.2-5.0); Alkaline Phosphatase 98 U/L (45-117); Anion Gap 9 (5-15); BUN 25 mg/dL (7-18); BUN/Creat Ratio 16.3 RATIO (10-20); Calcium,Total 9.9 mg/dL (8.5-10.1); Chloride 105 mmol/L (98-107); Cholesterol 186 mg/dL (200); Creatinine, Serum 1.53 mg/dL (0.70-1.30); EST Glomerular Filtration Rate 50 mL/min (>60); Est Glom Filt Rate - Afr Amer 60 mL/min (>60); Globulin 3.9 g/dL (2.2-4.2); Glucose 263 mg/dL (74-106); High Density Lipoprotein 33 mg/dL; Potassium 4.1 mmol/L (3.5-5.1); Protein, Total 7.8 g/dL (6.4-8.2); Sodium Level 137 mmol/L (136-145); Triglycerides 417 mg/dL
== END | disposition home or self-care (01) ==
LOC: VSLAB 14:42
PROVIDERS: PCP Nurse Practitioner Family; Visit Provider Nurse Practitioner Family
DX: E11.65 Type 2 diabetes mellitus with hyperglycemia (principal); Z12.5 Encounter for screening for malignant neoplasm of prostate
CPT/HCPCS: 36415; 80053; 80061; 82043; 84443; 85025

== ENCOUNTER → 2024-03-21 | Outpatient (CLI) | payer MEDICAID, SELFPAY ==
[2024-03-21 17:19] LABS: Absolute Lymphocyte Count 1.25 X10^3/uL (0.83-4.51); Absolute Neutrophil Count 5.4 X10^3/uL (2.0-7.7); Basophil# 0.07 X10^3/uL; Basophil% 0.9 % (0-1); Eosinophil# 0.24 X10^3/uL; Eosinophils% 3.2 % (0-5); Hemoglobin 14.6 g/dL (13.0-16.5); Lymphocyte # 1.25 X10^3/ul (0.83-4.51); Lymphocyte % 16.8 % (19-41); Mean Corp Hgb Conc 33.2 g/dL (32-36); Mean Corpuscular Hgb 28.7 pg (27.0-32.0); Mean Corpuscular Volume 86.6 fL (80-94); Mean Platelet Vol. 12.9 fl (6.2-12.0); Monocyte% 6.7 % (0-10); NRBC Flagged by Analyzer 0 % (0-5); Neutrophil # 5.35 X10^3/uL (2.7-7.7); POSITIVE COUNT YES; RBC Distribution Width CV 14.3 % (11.6-14.6); RBC Distribution Width SD 45.1 fl (35.1-43.9); Red Blood Count 5.08 M/mm3 (4.6-6.2); White Blood Count 7.4 K/mm3 (4.4-11.0)
[2024-03-21 17:32] LABS: Microalbumin,Random Urine 13.9 mg/L (NO RANGE EST.)
[2024-03-21 18:21] LABS: ALB/GLOB Ratio 1.1 RATIO (0.9-2.4); AST(SGOT) 20 U/L (15-37); Alanine Aminotransfer ALT/SGPT 25 U/L (16-61); Alkaline Phosphatase 121 U/L (45-117); Anion Gap 7 (5-15); BUN 25 mg/dL (7-18); BUN/Creat Ratio 16.1 RATIO (10-20); Calcium,Total 9.5 mg/dL (8.5-10.1); Chloride 107 mmol/L (98-107); Cholesterol 131 mg/dL (200); Creatinine, Serum 1.55 mg/dL (0.70-1.30); EST Glomerular Filtration Rate 49 mL/min (>60); Est Glom Filt Rate - Afr Amer 59 mL/min (>60); Globulin 3.6 g/dL (2.2-4.2); Glucose 138 mg/dL (74-106); High Density Lipoprotein 29 mg/dL; Potassium 4.2 mmol/L (3.5-5.1); Protein, Total 7.6 g/dL (6.4-8.2); Sodium Level 138 mmol/L (136-145); Triglycerides 433 mg/dL
[2024-03-21 19:57] LABS: Differential Indicated SCAN CRITERIA MET
[2024-03-21 19:59] LABS: Platelet Estimate ADEQUATE (ADEQ)
[2024-03-21 20:00] LABS: Platelet Morphology LARGE
== END | disposition home or self-care (01) ==
LOC: VSLAB 14:29
PROVIDERS: PCP Nurse Practitioner Family; Visit Provider Nurse Practitioner Family
DX: E11.9 Type 2 diabetes mellitus without complications (principal); E78.2 Mixed hyperlipidemia; E55.9 Vitamin D deficiency, unspecified
CPT/HCPCS: 36415; 80053; 80061; 82043; 82306; 85025

== ENCOUNTER → 2024-10-17 | Outpatient (CLI) | payer MEDICAID, SELFPAY ==
[2024-10-17 16:36] LABS: Hematocrit 42.6 % (40-54); Hemoglobin 15.1 g/dL (13.0-16.5); Immature Granulocytes Count 0.020 X10^3/uL (0.0-0.0); Mean Corp Hgb Conc 35.4 g/dL (32-36); Mean Corpuscular Volume 84.9 fL (80-94); NRBC Flagged by Analyzer 0 % (0-5); POSITIVE COUNT YES; RBC Distribution Width CV 13.7 % (11.6-14.6); RBC Distribution Width SD 42.3 fl (35.1-43.9); Red Blood Count 5.02 M/mm3 (4.6-6.2); White Blood Count 7.4 K/mm3 (4.4-11.0)
[2024-10-17 16:44] LABS: Differential Indicated SCAN CRITERIA MET
[2024-10-17 16:55] LABS: Microalbumin,Random Urine < 12.0 mg/L (<20 mg/L)
[2024-10-17 17:18] LABS: AST(SGOT) 18 U/L (<=37); Alanine Aminotransfer ALT/SGPT 13 U/L (<=46); Albumin, Serum 4.3 g/dL (3.4-4.8); Alkaline Phosphatase 101 U/L (40-129); Anion Gap 16 (5-15); BUN 25 mg/dL (4-19); BUN/Creat Ratio 17.8 RATIO (10-20); Calcium,Total 10.0 mg/dL (7.6-11.0); Carbon Dioxide 18.7 mmol/L (21.0-32.0); Chloride 103 mmol/L (98-108); Cholesterol 162 mg/dL (<=200); Globulin 3.2 g/dL (2.2-4.2); Glucose 172 mg/dL (70-99); Low Density Lipoprotein Calc. 52 mg/dL; PSA,Total - Annual Screen 2.59 ng/mL (0.02-4.00); Potassium 3.8 mmol/L (3.3-5.1); Triglycerides 415 mg/dL; Very Low Density Lipoprotein 83 mg/dL (5-40); Vitamin D,25 Hydroxy 58.4 ng/mL (30-100); cholesterol:hdl ratio screen 5.93
[2024-10-17 19:23] LABS: Differential Comment SCANNED
== END | disposition home or self-care (01) ==
LOC: VSLAB 14:06
PROVIDERS: PCP Nurse Practitioner Family; Visit Provider Nurse Practitioner Family
DX: I10 Essential (primary) hypertension (principal); E11.9 Type 2 diabetes mellitus without complications; E78.2 Mixed hyperlipidemia; E55.9 Vitamin D deficiency, unspecified; Z12.5 Encounter for screening for malignant neoplasm of prostate
CPT/HCPCS: 84153; 36415; 80053; 80061; 82043; 82306; 84443; 85025; G0103